=== PATIENT | male | born 1970 | race Caucasian/White ===

== ENCOUNTER 2016-10-10 15:35 | Emergency (ER) | payer OTHER ==
--- NOTE | 2016-10-10 15:53 | CPEKG ---
Heart Rate: 78 RR Interval: 769 P-R Interval: 156 QRSD Interval: 112 QT Interval: 416 QTC Interval: 474 P [place]: 78 QRS [place]: 70 T Wave [place]: 37 EKG Severity - ABNORMAL ECG - EKG Impression: SINUS RHYTHM EKG Impression: PROBABLE LEFT ATRIAL ABNORMALITY EKG Impression: NONSPECIFIC INTRAVENTRICULAR CONDUCTION DELAY EKG Impression: LEFT VENTRICULAR HYPERTROPHY Electronically Signed By: Garrick Hernandez 11-Oct-2016 00:11:27
[2016-10-10] MEDS ORDERED: LORazepam 1 MG TAB ONE (15:54)
[2016-10-10] MEDS ORDERED: LORazepam 1 MG TAB PO ONE (15:58)
[2016-10-10 16:53] LABS: % IMMATURE GRANULYOCYTES 0.2 % (0.0-1.1); ABSOLUTE IMMATURE GRANULOCYTES 0.01 10^3/uL (0.00-0.10); ADD DIFF? NO; ADD MORPH? NO; ADD SCAN? NO; ATYPICAL LYMPHOCYTE FLAG 0 (0-99); FRAGMENT RBC FLAG 0 (0-99); HEMATOCRIT 44.1 % (40.0-51.0); HEMOGLOBIN 15.4 g/dL (13.7-17.5); LEFT SHIFT FLG 0 (0-99); LIPEMIA HEMOLYSIS FLAG 90 (0-99); MEAN CELL HEMOGLOBIN 29.8 pg (27.9-34.1); MEAN CELL HEMOGLOBIN CONCENTR. 34.9 g/dL (32.4-36.7); MEAN CELL VOLUME 85.5 fL (81.5-99.8); MEAN PLATELET VOLUME 11.5 fL (8.7-11.7); PLATELET CLUMPS FLAG 0 (0-99); PLATELET COUNT 202 10^3/uL (150-400); RED BLOOD CELL COUNT 5.16 10^6/uL (4.40-6.38); RED CELL DISTRIBUTION WIDTH 12.9 % (11.5-15.2)
[2016-10-10 17:12] LABS: ANION GAP 12 mEq/L (8-16); CALCIUM 9.3 mg/dL (8.5-10.4); CARBON DIOXIDE 23 mEq/l (22-31); CHLORIDE 105 mEq/L (97-110); CREATININE 1.2 mg/dL (0.7-1.3); GLOMERULAR FILTRATION RATE > 60; GLUCOSE 118 mg/dL (70-100); POTASSIUM 4.1 mEq/L (3.5-5.2); SODIUM 140 mEq/L (134-144)
[2016-10-10 17:25] LABS: TROPONIN I < 0.012 ng/mL (0-0.034)
[2016-10-10 17:26] VITALS: RESP 18; O2SAT 99
--- NOTE | 2016-10-10 18:01 | EDPHY ---
H & P Stated Complaint: chest tightness , high blood pressure, x two weeks Time Seen by Provider: 10/10/16 15:56 HPI/ROS: Chief Complaint: Anxiety, palpitations, difficulty sleeping, chest tightness HPI: 46-year-old male with a history of Graves disease been having worsening symptoms with palpitations, difficulty sleeping for the last 2 weeks. Has had some associated chest tightness. Feeling lightheaded and some numbness in the face. Patient states that he follow his primary care physician and had normal thyroid tests 2 weeks ago. Repeat tests the following week showed some increase his which might be suggestive of worsening Graves disease. His physician gave him some Xanax. This afternoon about an hour ago began having increasing palpitations., palms sweating, lightheadedness. No chest tightness today. tightness ROS: 10 point Review of Systems is negative except as noted in the HPI. PMH: Graves disease Medications: Xanax Allergies: No known drug allergies Social History: No smoking, no alcohol, no recreational drug use Family History: Thyroid disease Physical Exam: Gen: Awake, Alert, No Distress HEENT: Nose: no rhinorrhea Eyes: PERRLA, EOMI Mouth: Moist mucosa Neck: Supple, no JVD Chest: nontender, lungs clear to auscultation Heart: S1, S2 normal, no murmur Abd: Soft, non-tender, no guarding Back: no CVA tenderness, no midline tenderness Ext: no edema, non-tender Skin: no rash Neuro: CN II-XII intact, Sensation grossly intact, Strength 5/5 in bilateral upper and lower extremities - Personal History Current Tetanus Diphtheria and Acellular Pertussis (TDAP): Yes - Medical/Surgical History Hx Asthma: No Hx Chronic Respiratory Disease: No Hx Diabetes: No Hx Cardiac Disease: No Hx Renal Disease: No Hx Cirrhosis: No Hx Alcoholism: No Hx HIV/AIDS: No Hx Splenectomy or Spleen Trauma: No Other PMH: graves disease - Social History Smoking Status: Never smoked Constitutional: Initial Vital Signs Temperature (C) 36.5 C 10/10/16 15:42 Heart Rate 90 10/10/16 15:42 Respiratory Rate 16 10/10/16 15:42 Blood Pressure 165/81 H 10/10/16 15:42 O2 Sat (%) 100 10/10/16 15:42 O2 Delivery Mode Room Air Allergies/Adverse Reactions: No Known Allergies Allergy (Unverified 08/17/09 11:16) Home Medications: Medication Instructions Recorded Benadryl 08/17/09 Propranolol HCl 40 mg PO BID #30 tablet 10/10/16 Medical Decision Making - Diagnostics EKG Interpretation: ECG time 3:51 p.m., sinus rhythm with a rate of 78, normal axis, normal intervals, with ventricular hypertrophy, no acute ST or T-wave changes. ED Course/Re-evaluation: Patient here with anxiety symptoms suggestive of hyperthyroidism. Free T3 is elevated mildly. Given the nature of his symptoms there is no evidence of acute cardiac ischemia process at this time. He does have an LVH on his ECG. No acute ischemic changes. 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 - Data Points Laboratory Results: Laboratory Results 10/10/16 16:41 10/10/16 16:41 10/10/16 10/10/16 16:41 16:41 WBC 5.64 10^3/uL 10^3/uL (3.80-9.50) RBC 5.16 10^6/uL 10^6/uL (4.40-6.38) Hgb 15.4 g/dL g/dL (13.7-17.5) Hct 44.1 % % (40.0-51.0) MCV 85.5 fL fL (81.5-99.8) MCH 29.8 pg pg (27.9-34.1) MCHC 34.9 g/dL g/dL (32.4-36.7) RDW 12.9 % % (11.5-15.2) Plt Count 202 10^3/uL 10^3/uL (150-400) MPV 11.5 fL fL (8.7-11.7) Neut % (Auto) 53.0 % % (39.3-74.2) Lymph % (Auto) 36.2 % % (15.0-45.0) [place] % (Auto) 7.3 % % (4.5-13.0) Eos % (Auto) 2.1 % % (0.6-7.6) Baso % (Auto) 1.2 % % (0.3-1.7) Nucleat RBC Rel Count 0.0 % % (0.0-0.2) Absolute Neuts (auto) 2.99 10^3/uL 10^3/uL (1.70-6.50) Absolute Lymphs (auto) 2.04 10^3/uL 10^3/uL (1.00-3.00) Absolute Monos (auto) 0.41 10^3/uL 10^3/uL (0.30-0.80) Absolute Eos (auto) 0.12 10^3/uL 10^3/uL (0.03-0.40) Absolute Basos (auto) 0.07 10^3/uL 10^3/uL (0.02-0.10) Absolute Nucleated RBC 0.00 10^3/uL 10^3/uL (0-0.01) Immature Gran % 0.2 % % (0.0-1.1) Immature Gran # 0.01 10^3/uL 10^3/uL (0.00-0.10) Sodium 140 mEq/L mEq/L (134-144) Potassium 4.1 mEq/L mEq/L (3.5-5.2) Chloride 105 mEq/L mEq/L (97-110) Carbon Dioxide 23 mEq/l mEq/l (22-31) Anion Gap 12 mEq/L mEq/L (8-16) BUN 10 mg/dL mg/dL (7-23) Creatinine 1.2 mg/dL mg/dL (0.7-1.3) Estimated GFR > 60 Glucose 118 mg/dL H mg/dL (70-100) Calcium 9.3 mg/dL mg/dL (8.5-10.4) Troponin I < 0.012 ng/mL ng/mL (0-0.034) TSH 0.746 uIU/mL uIU/mL (0.465-4.680) Free T4 1.32 ng/dL ng/dL (0.59-2.19) Free T3 5.43 pg/mL H pg/mL (2.77-5.27) Medications Given: Discontinued Medications Lorazepam (Ativan) 1 mg PO EDNOW ONE Stop: 10/10/16 15:59 Last Admin: 10/10/16 16:02 Dose: 1 mg Departure - Departure Disposition: Home, Routine, Self-Care Clinical Impression: Hyperthyroidism Condition: Good Instructions: Hyperthyroidism (ED) Additional Instructions: Take propranolol 40 mg twice a day for symptoms of hyperthyroidism. Follow up with primary care physician next week for further evaluation and review of your thyroid function tests. Return emergency depart for increasing chest pain, shortness of breath, palpitations, fevers, chills, or any other concerns. Prescriptions: Propranolol HCl 40 mg PO BID #30 tablet
[2016-10-10 18:36] VITALS: BP 133/94; PULSE 63; TEMP 98.1
== END 2016-10-10 18:36 | disposition home or self-care (01) ==
DX: E05.90 Thyrotoxicosis, unspecified without thyrotoxic crisis or storm (principal)
CPT/HCPCS: 84481-90